=== PATIENT | male | born 1975 | race Hispanic/Latino ===

== ENCOUNTER 2016-12-12 09:57 | Emergency (ER) | payer MEDICARE ==
[2016-12-12 09:57] VITALS: BMI 20.9
[2016-12-12 10:10] VITALS: O2SAT 99
[2016-12-12] MEDS ORDERED: Sodium Chloride 0.9% 1,000 ML IV STA (10:41)
--- NOTE | 2016-12-12 10:45 | ED PDOC ---
Arrival/HPI - General Chief Complaint: Dizziness/Lightheaded Time Seen by Provider: 12/12/16 10:39 Historian: Patient - History of Present Illness Narrative History of Present Illness (Text): 12/12/16 10:30 This 41 yo male presents to this ED c/o left lower molar gum infection x 1 day. Patient also noted a chronic nausea x 8 months. Patient denies PERSAUD, seizures , abdominal pain, sob, cp, rash, fever, or abnormal gait. Time/Duration: Other (1 day) Context: Home Past Medical History - Provider Review Nursing Documentation Reviewed: Yes - Infectious Disease Hx of Infectious Diseases: None - Tetanus Immunization Tetanus Immunization: Unknown - Neurological Hx Migraine: Yes Hx Seizures: Yes - Psychiatric Hx Depression: Yes Hx Emotional Abuse: No Hx Physical Abuse: No Hx Substance Use: No - Surgical History Hx Orthopedic Surgery: Yes (back surgery) - Anesthesia Hx Anesthesia: Yes Hx Anesthesia Reactions: No Hx Malignant Hyperthermia: No - Suicidal Assessment Feels Threatened In Home Enviroment: No Family/Social History - Physician Review Nursing Documentation Reviewed: Yes Family/Social History: No Known Family HX Smoking Status: Heavy Smoker > 10 Cigarettes Daily Hx Alcohol Use: No Hx Substance Use: No Hx Substance Use Treatment: No Allergies/Home Meds Allergies/Adverse Reactions: Allergies No Known Allergies Allergy (Verified 12/12/16 10:09) Home Medications: Home Meds Medication Instructions Recorded Confirmed Methadone 10 mg PO DAILY 04/04/14 12/12/16 Review of Systems - Review of Systems Constitutional: Normal. absent: Fatigue, Weight Change, Fevers Eyes: Normal ENT: Normal. absent: Sore Throat, Rhinorrhea Respiratory: Normal. absent: SOB, Cough Cardiovascular: Normal Gastrointestinal: Nausea. absent: Abdominal Pain, Constipation, Diarrhea, Vomiting Genitourinary Male: Normal. absent: Dysuria, Frequency, Hematuria Musculoskeletal: Normal. absent: Back Pain Skin: Normal. absent: Rash, Cellulitis Neurological: Normal. absent: Headache, Dizziness, Focal Weakness, Gait Changes , Speech Changes Endocrine: Normal Hemo/Lymphatic: Normal Psychiatric: Normal Physical Exam Vital Signs Temp Pulse Resp BP Pulse Ox 12/12/16 10:03 99.8 F H 65 20 155/99 H 99 Temperature: Afebrile Blood Pressure: Hypertensive Pulse: Regular Respiratory Rate: Normal Appearance: Positive for: Well-Appearing, Non-Toxic, Comfortable Pain Distress: None Mental Status: Positive for: Alert and Oriented X 3 - Systems Exam Head: Present: Atraumatic, Normocephalic Pupils: Present: PERRL Extroacular Muscles: Present: EOMI Conjunctiva: Present: Normal Mouth: Present: Moist Mucous Membranes, Normal Lips, Normal Tounge. No: Drooling, Normal Teeth ((+) mild gum swelling tooth 18, and 19. Teeth are missing) Pharnyx: Present: Normal. No: ERYTHEMA, EXUDATE, TONSILS ENLARGED Neck: Present: Normal Range of Motion, Trachea Midline. No: Meningeal Signs Respiratory/Chest: Present: Clear to Auscultation, Good Air Exchange. No: Respiratory Distress, Accessory Muscle Use, Wheezes, Decreased Breath Sounds, Rales, Retracting, Rhonchi, Tachypneic Cardiovascular: Present: Regular Rate and Rhythm, Normal S1, S2. No: Murmurs Abdomen: Present: Normal Bowel Sounds. No: Tenderness, Distention, Peritoneal Signs Back: Present: Normal Inspection Upper Extremity: Present: Normal Inspection, Normal ROM, Neurovascularly Intact , Capillary Refill < 2s. No: Cyanosis, Edema Lower Extremity: Present: Normal Inspection, NORMAL PULSES, Normal ROM, Capillary Refill < 2 s. No: Edema Neurological: Present: GCS=15, CN II-XII Intact, Speech Normal, Motor Func Grossly Intact, Normal Sensory Function, Normal Cerebellar Funct, Gait Normal Skin: Present: Warm, Dry, Normal Color. No: Rashes Psychiatric: Present: Alert, Oriented x 3, Normal Insight, Normal Concentration Medical Decision Making ED Course and Treatment: 12/12/16 12:01 Re-evaluation. Patient feels better. Discussed results and plan with patient who expresses understanding. Counseling was provided regarding the diagnosis and prognosis. All questions answered and there is agreement with the plan to discharge home with instructions. Patient stable for discharge. Return if symptoms persist or worsen Patient admits constipation. Patient requesting Neurology and GI doctor referral Re-evaluation Time: 12:01 Reassessment Condition: Re-examined, Improved - Lab Interpretations Lab Results: 12/12/16 11:03 12/12/16 11:03 Lab Results 12/12/16 11:03: Sodium 141, Potassium 3.8, Chloride 101, Carbon Dioxide 30, Anion Gap 14, BUN 6 L, Creatinine 0.7, Est GFR ( Amer) > 60, Est GFR (Non -Af Amer) > 60, Random Glucose 96, Calcium 8.9, Total Bilirubin 1.1, AST 31, ALT 32, Alkaline Phosphatase 82, Total Protein 7.4, Albumin 4.5, Globulin 3.0, Albumin/Globulin Ratio 1.5, Lipase 17 L 12/12/16 11:03: WBC 10.5, RBC 5.21, Hgb 14.1, Hct 42.5, MCV 81.6, MCH 27.1, MCHC 33.2, RDW 14.8 H, Plt Count 112 L, MPV 13.0 H, Gran % 75.2 H, Lymph % (Auto ) 13.4 L, [place] % (Auto) 10.9 H, Eos % (Auto) 0.3 L, Baso % (Auto) 0.2, Gran # 7.90 H, Lymph # 1.4, [place] # 1.2 H, Eos # 0.0, Baso # 0.02 I have reviewed the lab results: Yes Interpretation: No clinic. lab abnormalty - Medication Orders Current Medication Orders: Discontinued Medications Clindamycin Phosphate 600 mg/ (Sodium Chloride) 54 mls @ 108 mls/hr IVPB STAT STA PRN Reason: Protocol Stop: 12/12/16 11:10 Last Admin: 12/12/16 11:11 Dose: 108 mls/hr Sodium Chloride (Sodium Chloride 0.9%) 1,000 mls @ 999 mls/hr IV .Q1H1M STA Stop: 12/12/16 11:41 Last Admin: 12/12/16 10:58 Dose: 999 mls/hr Ketorolac Tromethamine (Toradol) 15 mg IVP STAT STA Stop: 12/12/16 10:43 Last Admin: 12/12/16 10:58 Dose: 15 mg Metoclopramide HCl (Reglan) 10 mg IVP STAT STA Stop: 12/12/16 10:42 Last Admin: 12/12/16 10:58 Dose: 10 mg Disposition/Present on Arrival - Present on Arrival Any Indicators Present on Arrival: No History of DVT/PE: No History of Uncontrolled Diabetes: No Urinary Catheter: No History of Decub. Ulcer: No History Surgical Site Infection Following: None - Disposition Have Diagnosis and Disposition been Completed?: Yes Diagnosis: Pain due to dental caries, Constipation Disposition: HOME/ ROUTINE Disposition Time: 12:02 Patient Plan: Discharge Patient Problems: Current Active Problems Problem Status Onset Constipation Acute Pain due to dental caries Acute Condition: GOOD Discharge Instructions (ExitCare): Constipation (ED), Toothache (ED) Additional Instructions: Call private doctor for follow up visit in 1-2 days. Take medication as instructed. Return to emergency if symptoms worsen. Call Neurologist and control analyst for revaluation. Prescriptions: Clindamycin [Cleocin] 300 mg PO TID #30 cap Lactulose 20 gm PO BID PRN #1 bottle PRN Reason: Constipation Polyethylene Glycol 3350 [Miralax] 17 gr PO DAILY #1 packet Referrals: PCP,LYNDSEY [Primary Care Provider] - Follow up with primary Terrence Arias MD [Staff Provider] - Follow up with primary Venkatesh Edwards DO [Staff Provider] - Follow up with primary
[2016-12-12 11:05] LABS: ADD MANUAL DIFF? NO
[2016-12-12 11:12] LABS: BASO # 0.02 K/mm3 (0.0-2.0); BASO % 0.2 % (0.0-3.0); EOS % 0.3 % (1.5-5.0); GRAN % 75.2 % (50.0-68.0); HEMATOCRIT 42.5 % (42.0-52.0); LYMPH # 1.4 (1.2-3.4); LYMPH % 13.4 % (22.0-35.0); MEAN CELL VOLUME 81.6 fL (80.0-105.0); MEAN CORPUSCULAR HEMOGLOBIN 27.1 pg (25.0-35.0); MEAN CORPUSCULAR HGB CONC 33.2 g/dl (31.0-37.0); MONO # 1.2 (0.1-0.6); MONO % 10.9 % (1.0-6.0); RED CELL DISTRIBUTION WIDTH 14.8 % (11.5-14.5); WHITE BLOOD COUNT 10.5 10^3/ul (4.5-11.0)
[2016-12-12 11:23] LABS: ALB/GLOB RATIO 1.5 (1.1-1.8); ALKALINE PHOSPHATASE 82 U/L (38-133); ALT/SGPT 32 U/L (7-56); AST/SGOT 31 U/L (15-59); BILIRUBIN,TOTAL 1.1 mg/dL (0.2-1.3); BLOOD UREA NITROGEN 6 mg/dL (7-21); CALCIUM 8.9 mg/dL (8.4-10.5); CARBON DIOXIDE 30 mmol/L (21-33); CHLORIDE 101 mmol/L (98-107); GFR AFRICAN-AMERICAN > 60; GLUCOSE,RANDOM 96 mg/dL (70-110); LIPASE 17 U/L (23-300); POTASSIUM 3.8 mmol/L (3.6-5.0); SODIUM 141 mmol/L (132-148); TOTAL PROTEIN 7.4 g/dL (5.8-8.3)
[2016-12-12 12:12] LABS: PLATELET COUNT 112 10^3/uL (120.0-450.0)
[2016-12-12 12:24] VITALS: BP 138/76; PULSE 84; RESP 18; TEMP 99
== END 2016-12-12 12:26 | disposition home or self-care (01) ==
LOC: ED 09:57
DX: K59.00 Constipation, unspecified (principal); K02.9 Dental caries, unspecified; K08.89 Other specified disorders of teeth and supporting structures
CPT/HCPCS: 80053; 83690; 85025; 96365; 96375; 99285; J1885; J2765; J7040

== ENCOUNTER 2017-04-06 05:49 | Emergency (ER) | payer MEDICARE ==
[2017-04-06 05:49] VITALS: BMI 20.9
[2017-04-06 06:09] VITALS: TEMP 99
--- NOTE | 2017-04-06 07:27 | ED PDOC ---
Arrival/HPI - General Chief Complaint: Medical Clearance Time Seen by Provider: 04/06/17 06:59 Historian: Patient - History of Present Illness Narrative History of Present Illness (Text): 04/06/17 07:00 A 41 year old male smoker, who denies any significant past medical history, presents to the emergency department for chronic back pain, neck pain, and overall total body pain, which he has been dealing with for the past 15 years. The patient reports he stopped seeing pain management over a year ago. He admits to stop taking morphine and methadone about 2 months for the pain. The patient denies any nausea, vomiting, diarrhea, headaches, shortness of breath, or any other complaints at this time. Time/Duration: Other (15 years ) Symptom Onset: Other Symptom Course: Unchanged Activities at Onset: Light Context: Home Associated Symptoms (Text): 04/06/17 08:11 Chronic entire spine pain for many years. Patient had been in pain management for many years. He weaned himself off of his narcotic pain medication several months ago. He states that he can no longer take the pain. He just wants to know what it is. Past Medical History - Provider Review Nursing Documentation Reviewed: Yes - Infectious Disease Hx of Infectious Diseases: None - Tetanus Immunization Tetanus Immunization: Unknown - Neurological Hx Migraine: Yes Hx Seizures: Yes - Psychiatric Hx Anxiety: Yes Hx Depression: Yes Hx Emotional Abuse: No Hx Physical Abuse: No Hx Substance Use: Yes - Surgical History Hx Orthopedic Surgery: Yes (back surgery) - Anesthesia Hx Anesthesia: Yes Hx Anesthesia Reactions: No Hx Malignant Hyperthermia: No - Suicidal Assessment Feels Threatened In Home Enviroment: No Family/Social History - Physician Review Nursing Documentation Reviewed: Yes Family/Social History: No Known Family HX Smoking Status: Heavy Smoker > 10 Cigarettes Daily Hx Alcohol Use: Yes Frequency of alcohol use: Socially Hx Substance Use: Yes Substance used: marijuana today Hx Substance Use Treatment: No Allergies/Home Meds Allergies/Adverse Reactions: Allergies No Known Allergies Allergy (Verified 04/06/17 06:46) Review of Systems - Physician Review All systems were reviewed & negative as marked: Yes - Review of Systems Respiratory: absent: SOB Cardiovascular: absent: Chest Pain Gastrointestinal: absent: Diarrhea, Nausea, Vomiting Neurological: absent: Headache, Focal Weakness, Gait Changes, Disequilibrium, Seizure Physical Exam Vital Signs Reviewed: Yes Vital Signs Temp Pulse Resp BP Pulse Ox 04/06/17 07:43 81 18 128/76 97 04/06/17 06:03 99.0 F 122 H 22 150/80 96 04/06/17 05:49 99 F 122 H 18 150/80 96 Temperature: Afebrile Blood Pressure: Normal Pulse: Regular Respiratory Rate: Normal Appearance: Positive for: Well-Appearing, Non-Toxic, Uncomfortable Pain Distress: Mild Mental Status: Positive for: Alert and Oriented X 3 - Systems Exam Head: Present: Atraumatic, Normocephalic Pupils: Present: PERRL Extroacular Muscles: Present: EOMI Conjunctiva: Present: Normal Mouth: Present: Moist Mucous Membranes Neck: Present: Normal Range of Motion Respiratory/Chest: Present: Clear to Auscultation, Good Air Exchange. No: Respiratory Distress, Accessory Muscle Use Cardiovascular: Present: Regular Rate and Rhythm, Normal S1, S2. No: Murmurs Abdomen: Present: Normal Bowel Sounds. No: Tenderness, Distention, Peritoneal Signs Back: Present: Midline Tenderness (throughout entire spine), Paraspinal Tenderness, Other (large lumbar sacral scar). No: Pain with Leg Raise Upper Extremity: Present: Normal Inspection. No: Cyanosis, Edema Lower Extremity: Present: Normal Inspection. No: Edema Neurological: Present: GCS=15, CN II-XII Intact, Speech Normal, Motor Func Grossly Intact, Normal Sensory Function, Normal Cerebellar Funct, Norm Deep Tendon Reflexes, Gait Normal, Memory Normal, Normal 2Pt Descrimination Skin: Present: Warm, Dry, Normal Color. No: Rashes Psychiatric: Present: Alert, Oriented x 3, Normal Insight, Normal Concentration , Anxious (Appears to be very anxious and nervous) Medical Decision Making ED Course and Treatment: 04/06/17 07:31 Impression: A 41 year old male with overall chronic body pain. Treatment: -- EKG -- Flexeril, toradol Progress Notes: 04/06/17 08:13 No improvement with Toradol and Flexeril. Morphine has been ordered. 04/06/17 09:29 Pain improved after morphine. Discharge home accompanied by girlfriend. Follow- up with PMD and pain management. - Medication Orders Current Medication Orders: Cyclobenzaprine HCl (Flexeril) 10 mg PO ONCE ANAHI Last Admin: 04/06/17 07:25 Dose: 10 mg Discontinued Medications Ketorolac Tromethamine (Toradol) 60 mg IM ONCE ONE Stop: 04/06/17 07:13 Last Admin: 04/06/17 07:25 Dose: 60 mg MAR Pain Assessment Document 04/06/17 07:25 SRE (Rec: 04/06/17 07:26 SRE [id number]) Pain Reassessment Is this a pain reassessment? Yes Sleep Is patient sleeping during reassessment? No Presence of Pain Presence of Pain Yes Pain Scale Used Pain Scale Used Numeric Location Pain Location Body Site Generalized Description Description Constant IM Administration Charges Document 04/06/17 07:25 SRE (Rec: 04/06/17 07:26 SRE [id number]) Charges for Administration # of IM Administrations 1 Morphine Sulfate (Morphine) 4 mg IM STAT STA Stop: 04/06/17 08:11 Last Admin: 04/06/17 08:21 Dose: 4 mg MAR Pain Assessment Document 04/06/17 08:21 SRE (Rec: 04/06/17 08:22 SRE [id number]) Pain Reassessment Is this a pain reassessment? Yes Sleep Is patient sleeping during reassessment? No Presence of Pain Presence of Pain Yes Pain Scale Used Pain Scale Used Numeric Location Pain Location Body Site Generalized IM Administration Charges Document 04/06/17 08:21 SRE (Rec: 04/06/17 08:22 SRE [id number]) Charges for Administration # of IM Administrations 1 - Scribe Statement The provider has reviewed the documentation as recorded by the Scribmayur Pérez Provider Scribe Attestation: All medical record entries made by the Scribe were at my direction and personally dictated by me. I have reviewed the chart and agree that the record accurately reflects my personal performance of the history, physical exam, medical decision making, and the department course for this patient. I have also personally directed, reviewed, and agree with the discharge instructions and disposition. Disposition/Present on Arrival - Present on Arrival Any Indicators Present on Arrival: No History of DVT/PE: No History of Uncontrolled Diabetes: No Urinary Catheter: No History of Decub. Ulcer: No History Surgical Site Infection Following: None - Disposition Have Diagnosis and Disposition been Completed?: Yes Diagnosis: Chronic back pain Disposition: HOME/ ROUTINE Disposition Time: 09:29 Patient Plan: Discharge Condition: IMPROVED Discharge Instructions (ExitCare): Chronic Back Pain (ED) Prescriptions: oxyCODONE/Acetaminophen [Percocet 5/325 mg Tab] 1 ea PO Q6 #10 tab Referrals: PCP,NO [Primary Care Provider] - Follow up with primary Surendra Hector DO [Staff Provider] - Follow up with primary Forms: [employer] ([place])
[2017-04-06 07:44] VITALS: BP 128/76; RESP 18
[2017-04-06] MEDS ORDERED: Morphine 4 mg/ml ISec IM STA (08:10)
[2017-04-06 09:32] VITALS: PULSE 92; O2SAT 99
== END 2017-04-06 09:42 | disposition home or self-care (01) ==
LOC: ED 05:49
DX: M54.9 Dorsalgia, unspecified (principal); G89.29 Other chronic pain
CPT/HCPCS: 96372; 99283; J1885; J2270

== ENCOUNTER 2017-07-10 16:49 | Emergency (ER) | payer MEDICARE ==
[2017-07-10 16:49] VITALS: BMI 20.9
[2017-07-10] MEDS ORDERED: levETIRAcetam 1,000 MG in Sodium Chloride 0.9% 100 ML IV ONE (17:08)
--- NOTE | 2017-07-10 17:13 | ED PDOC ---
Arrival/HPI - General Chief Complaint: Seizure Time Seen by Provider: 07/10/17 16:58 Historian: Patient, Family - History of Present Illness Narrative History of Present Illness (Text): 07/10/17 17:08 A 41 year old male, whose past medical history includes seizure disorder and frequent falls, presents to the emergency department for trauma above the right eye, which occurred prior to arrival when the patient began to feel dizzy and he "may have had a seizure" he struck his right forehead. The patient states he still feels dizzy, but denies any nausea, vomiting, vision changes. The patient denies any alcohol intake or drug use. Time/Duration: Prior to Arrival Symptom Onset: Sudden Symptom Course: Unchanged Severity Level: Mild Activities at Onset: Light Context: Home Past Medical History - Provider Review Nursing Documentation Reviewed: Yes - Infectious Disease Hx of Infectious Diseases: None - Tetanus Immunization Tetanus Immunization: Unknown - Cardiac Hx Cardiac Disorders: No - Pulmonary Hx Respiratory Disorders: No - Neurological Hx Neurological Disorder: Yes Hx Migraine: Yes Hx Seizures: Yes - HEENT Hx HEENT Disorder: No - Renal Hx Renal Disorder: No - Endocrine/Metabolic Hx Endocrine Disorders: No - Hematological/Oncological Hx Blood Disorders: No - Integumentary Hx Dermatological Disorder: No - Musculoskeletal/Rheumatological Hx Musculoskeletal Disorders: No - Gastrointestinal Hx Gastrointestinal Disorders: No - Genitourinary/Gynecological Hx Genitourinary Disorders: No - Psychiatric Hx Anxiety: Yes Hx Depression: Yes Hx Emotional Abuse: No Hx Physical Abuse: No Hx Substance Use: Yes - Surgical History Hx Orthopedic Surgery: Yes (back surgery) - Anesthesia Hx Anesthesia: Yes Hx Anesthesia Reactions: No Hx Malignant Hyperthermia: No - Suicidal Assessment Feels Threatened In Home Enviroment: No Family/Social History - Physician Review Nursing Documentation Reviewed: Yes Family/Social History: No Known Family HX Smoking Status: Heavy Smoker > 10 Cigarettes Daily Hx Alcohol Use: Yes Hx Substance Use: Yes Substance used: marijuana today Hx Substance Use Treatment: No Allergies/Home Meds Allergies/Adverse Reactions: Allergies No Known Allergies Allergy (Verified 07/10/17 17:02) Home Medications: Home Meds Medication Instructions Recorded Confirmed Lamotrigine [Lamictal] 0 mg PO BID 07/10/17 07/10/17 Methadone [Methadone] 0 mg PO DAILY 07/10/17 07/10/17 Review of Systems - Physician Review All systems were reviewed & negative as marked: Yes - Review of Systems Eyes: absent: Vision Changes Gastrointestinal: absent: Nausea, Vomiting Neurological: Dizziness Physical Exam Vital Signs Reviewed: Yes Vital Signs Temp Pulse Resp BP Pulse Ox 07/11/17 00:00 98.6 F 76 16 138/80 99 07/10/17 22:00 64 16 148/70 99 07/10/17 20:00 73 14 113/63 99 07/10/17 18:02 73 18 113/70 98 07/10/17 17:05 98.8 F 122 H 30 H 181/114 H 99 Temperature: Afebrile Blood Pressure: Hypertensive Pulse: Tachycardic Respiratory Rate: Tachypneic Appearance: Positive for: Well-Appearing, Non-Toxic, Comfortable Pain Distress: None Mental Status: Positive for: Alert and Oriented X 3 - Systems Exam Head: Present: Contusion (contusion with abrasion over right eye ) Pupils: Present: PERRL Extroacular Muscles: Present: EOMI Conjunctiva: Present: Normal Mouth: Present: Moist Mucous Membranes Neck: Present: Normal Range of Motion. No: MIDLINE TENDERNESS, Paraspinal Tenderness Respiratory/Chest: Present: Clear to Auscultation, Good Air Exchange. No: Respiratory Distress, Accessory Muscle Use, Tender to Palpation Cardiovascular: Present: Regular Rate and Rhythm, Normal S1, S2. No: Murmurs Abdomen: Present: Normal Bowel Sounds. No: Tenderness, Distention, Peritoneal Signs Back: Present: Normal Inspection Upper Extremity: Present: Normal Inspection. No: Cyanosis, Edema Lower Extremity: Present: Normal Inspection. No: Edema Neurological: Present: GCS=15, CN II-XII Intact, Other (slightly slurred speech ). No: Speech Normal Skin: Present: Warm, Dry, Normal Color. No: Rashes Psychiatric: Present: Alert, Oriented x 3, Normal Insight, Normal Concentration Medical Decision Making ED Course and Treatment: 07/10/17 17:18 Impression: A 41 year old male with trauma to right forehead and possible seizure. Differential Diagnosis included but are not limited to: Plan: -- Cervical Spine CT -- Head CT -- Labs -- Levetiracetam -- Reassess and disposition Progress Notes: - Critical Care Narrative Critical Care (Text): 07/10/17 21:56 CT head and neck negative for acute pathology. Patient is lethargic but arousable. Not yet ambulatory. Labs stable. Continue ED observation. Discharge when more alert and ambulatory. - Lab Interpretations Lab Results: 07/10/17 17:00 07/10/17 17:00 Lab Results 07/10/17 17:00: Alcohol, Quantitative < 10 07/10/17 17:00: Sodium 142, Potassium 4.2, Chloride 105, Carbon Dioxide 26, Anion Gap 16, BUN 11, Creatinine 0.8, Est GFR ( Amer) > 60, Est GFR (Non- Af Amer) > 60, Random Glucose 94, Calcium 9.2, Magnesium 2.1, Total Bilirubin 0.5, AST 29, ALT 31, Alkaline Phosphatase 78, Total Protein 7.6, Albumin 4.5, Globulin 3.1, Albumin/Globulin Ratio 1.5 07/10/17 17:00: WBC 8.3 D, RBC 5.09, Hgb 14.2, Hct 43.6, MCV 85.7, MCH 27.9, MCHC 32.6, RDW 14.4, Plt Count 168, MPV 11.1 H, Gran % 61.8, Lymph % (Auto) 28.3 , [place] % (Auto) 9.1 H, Eos % (Auto) 0.4 L, Baso % (Auto) 0.4, Gran # 5.13, Lymph # 2.3, [place] # 0.8 H, Eos # 0.0, Baso # 0.03 07/10/17 16:58: POC Glucose (mg/dL) 82 - RAD Interpretation Radiology Orders: 07/10/17 17:06 HEAD W/O CONTRAST [CT] Stat 07/10/17 17:07 CERVICAL SPINE W/O CONTRAST [CT] Stat - Medication Orders Current Medication Orders: Discontinued Medications Acetaminophen (Tylenol 325mg Tab) 650 mg PO STAT STA Stop: 07/11/17 02:45 Last Admin: 07/11/17 03:39 Dose: 650 mg MAR Pain/Vitals Document 07/11/17 03:39 AD (Rec: 07/11/17 03:39 AD [id number]) Pain Reassessment Is This A Pain ReAssessment? No Levetiracetam 1,000 mg/ Sodium (Chloride) 110 mls @ 440 mls/hr IV ONCE ONE Stop: 12/30/17 17:22 Last Admin: 07/10/17 17:57 Dose: 440 mls/hr eMAR Start Stop Document 07/10/17 17:57 EWO (Rec: 07/10/17 17:57 [place] [facility] [id number] Intravenous Solution Start Date 07/10/17 Start Time 17:57 End Date 07/10/17 End time 18:12 Total Infusion Time 15 Lorazepam (Ativan) 1 mg IVP ONCE ONE PRN Reason: Protocol Stop: 07/10/17 20:29 Last Admin: 07/10/17 20:36 Dose: 1 mg IVP Administration Document 07/10/17 20:36 AB (Rec: 07/10/17 20:36 AB [facility] [id number] Charges for Administration # of IVP Administrations 1 - Scribe Statement The provider has reviewed the documentation as recorded by the Scribe Fabienne Pérez Provider Scribe Attestation: All medical record entries made by the Scribe were at my direction and personally dictated by me. I have reviewed the chart and agree that the record accurately reflects my personal performance of the history, physical exam, medical decision making, and the department course for this patient. I have also personally directed, reviewed, and agree with the discharge instructions and disposition. Disposition/Present on Arrival - Present on Arrival History of DVT/PE: No History of Uncontrolled Diabetes: No Urinary Catheter: No History of Decub. Ulcer: No History Surgical Site Infection Following: None - Disposition Diagnosis: Seizure Disposition: AGAINST MEDICAL ADVICE Patient Problems: Current Active Problems Problem Status Onset Seizure Acute Condition: STABLE Forms: [employer] (Sinhala)
[2017-07-10 17:37] LABS: ALB/GLOB RATIO 1.5 (1.1-1.8); ALBUMIN 4.5 g/dL (3.0-4.8); ALT/SGPT 31 U/L (7-56); AST/SGOT 29 U/L (17-59); BLOOD UREA NITROGEN 11 mg/dL (7-21); CALCIUM 9.2 mg/dL (8.4-10.5); GFR AFRICAN-AMERICAN > 60; GFR NON-AFRICAN AMERICAN > 60; MAGNESIUM 2.1 mg/dL (1.7-2.2)
[2017-07-10 17:40] LABS: BASO # 0.03 K/mm3 (0.0-2.0); BASO % 0.4 % (0.0-3.0); EOS % 0.4 % (1.5-5.0); GRAN # 5.13 (1.4-6.5); GRAN % 61.8 % (50.0-68.0); HEMOGLOBIN 14.2 g/dL (14.0-18.0); LYMPH # 2.3 (1.2-3.4); LYMPH % 28.3 % (22.0-35.0); MEAN CELL VOLUME 85.7 fl (80.0-105.0); MEAN CORPUSCULAR HEMOGLOBIN 27.9 pg (25.0-35.0); MEAN CORPUSCULAR HGB CONC 32.6 g/dl (31.0-37.0); MEAN PLATELET VOLUME 11.1 fl (7.0-11.0); MONO # 0.8 (0.1-0.6); MONO % 9.1 % (1.0-6.0); RBC 5.09 10^6/uL (3.5-6.1); RED CELL DISTRIBUTION WIDTH 14.4 % (11.5-14.5); WHITE BLOOD COUNT 8.3 10^3/ul (4.5-11.0)
[2017-07-10 20:40] VITALS: O2SAT 99
--- NOTE | 2017-07-10 21:44 | CT ---
EXAM: CT Head and facial bones Without Intravenous Contrast CLINICAL HISTORY: 41 years old, male; Injury or trauma; Fall; Initial encounter; Abrasion; Head, generalized; Patient HX: Seizure, head injury TECHNIQUE: Axial computed tomography images of the head/brain and facial bones without intravenous contrast. All CT scans at this facility use one or more dose reduction techniques, viz.: automated exposure control; ma/kV adjustment per patient size (including targeted exams where dose is matched to indication; i.e. head); or iterative reconstruction technique. Coronal and sagittal reformatted images were created and reviewed. COMPARISON: No relevant prior studies available. FINDINGS: Brain: No hemorrhage. No significant white matter disease. No edema. Ventricles: No hydrocephalus. Bones: Skull is intact. Sinuses: No acute sinusitis. Minimal left maxillary paranasal sinus disease. Mastoid air cells: No mastoid effusion. Evidence of dental disease including periapical lucency. Followup evaluation recommended. IMPRESSION: No CT evidence of acute intracranial abnormality. No acute fracture visualized. Details/findings as above.
--- NOTE | 2017-07-10 21:47 | CT ---
EXAM: CT Cervical Spine Without Intravenous Contrast CLINICAL HISTORY: 41 years old, male; Injury or trauma; Fall; Initial encounter; Abrasion TECHNIQUE: Axial computed tomography images of the cervical spine without intravenous contrast. All CT scans at this facility use one or more dose reduction techniques, viz.: automated exposure control; ma/kV adjustment per patient size (including targeted exams where dose is matched to indication; i.e. head); or iterative reconstruction technique. Coronal and sagittal reformatted images were created and reviewed. COMPARISON: No relevant prior studies available. FINDINGS: Vertebrae/discs: No acute fracture. No acute subluxation. No suspicious osseous lesion. No severe spinal canal stenosis. Soft tissues: No acute findings. IMPRESSION: Negative for acute fracture.
[2017-07-10 22:52] VITALS: RESP 16
--- NOTE | 2017-07-10 23:22 | ED PDOC ---
Physical Exam Vital Signs Temp Pulse Resp BP Pulse Ox 07/11/17 00:00 98.6 F 76 16 138/80 99 07/10/17 22:00 64 16 148/70 99 07/10/17 20:00 73 14 113/63 99 07/10/17 18:02 73 18 113/70 98 07/10/17 17:05 98.8 F 122 H 30 H 181/114 H 99 Medical Decision Making ED Course and Treatment: 07/10/17 23:00 Case endorsed to me by Dr. Brodeirck. Pt, whose past medical history includes seizures and frequent falls, presented s/p fall and possible seizure. Given IV Keppra and IV Ativan as pt was apparently agitated. Pt has remained lethargic but arousable, CT scans done previously of neck and head were all negative. 07/10/17 23:52 Pt remains lethargic, drowsy in ER, will admit for further observation and evaluation. Case discussed with Dr. Nieves, who is aware and agrees with plan. Accepts pt in her service,Dr. Arias on neuro consult. 07/11/17 00:19 Pt now awake, alert, stating he feels fine and insists on wanting to leave. Pt states he will sign out against medical advice. 07/11/17 00:44 EKG reviewed, NSR at [address]-segment elevations or depressions, no T-wave inversions, normal intervals. 07/11/17 03:51 Pt observed for extended period of time in Emergency department, pt still insists he feels fine and wants to leave against medical advice. Pt fully ambulatory with steady gait. Pt states he feels fine, and understands the risks of leaving against medical advice including the possibility of seizures/. Pt will f/u outpt. - Lab Interpretations Lab Results: 07/10/17 17:00 07/10/17 17:00 Lab Results 07/10/17 17:00: Alcohol, Quantitative < 10 07/10/17 17:00: Sodium 142, Potassium 4.2, Chloride 105, Carbon Dioxide 26, Anion Gap 16, BUN 11, Creatinine 0.8, Est GFR ( Amer) > 60, Est GFR (Non- Af Amer) > 60, Random Glucose 94, Calcium 9.2, Magnesium 2.1, Total Bilirubin 0.5, AST 29, ALT 31, Alkaline Phosphatase 78, Total Protein 7.6, Albumin 4.5, Globulin 3.1, Albumin/Globulin Ratio 1.5 07/10/17 17:00: WBC 8.3 D, RBC 5.09, Hgb 14.2, Hct 43.6, MCV 85.7, MCH 27.9, MCHC 32.6, RDW 14.4, Plt Count 168, MPV 11.1 H, Gran % 61.8, Lymph % (Auto) 28.3 , Yancey % (Auto) 9.1 H, Eos % (Auto) 0.4 L, Baso % (Auto) 0.4, Gran # 5.13, Lymph # 2.3, Yancey # 0.8 H, Eos # 0.0, Baso # 0.03 07/10/17 16:58: POC Glucose (mg/dL) 82 - RAD Interpretation Radiology Orders: 07/10/17 17:06 HEAD W/O CONTRAST [CT] Stat 07/10/17 17:07 CERVICAL SPINE W/O CONTRAST [CT] Stat - EKG Interpretation Interpreted by ED Physician: Yes Type: 12 lead EKG - Medication Orders Current Medication Orders: Discontinued Medications Acetaminophen (Tylenol 325mg Tab) 650 mg PO STAT STA Stop: 07/11/17 02:45 Last Admin: 07/11/17 03:39 Dose: 650 mg MAR Pain/Vitals Document 07/11/17 03:39 AD (Rec: 07/11/17 03:39 AD [id number]) Pain Reassessment Is This A Pain ReAssessment? No Levetiracetam 1,000 mg/ Sodium (Chloride) 110 mls @ 440 mls/hr IV ONCE ONE Stop: 07/10/17 17:22 Last Admin: 07/10/17 17:57 Dose: 440 mls/hr eMAR Start Stop Document 07/10/17 17:57 EWO (Rec: 07/10/17 17:57 EWO [id number]) Intravenous Solution Start Date 07/10/17 Start Time 17:57 End Date 07/10/17 End time 18:12 Total Infusion Time 15 Lorazepam (Ativan) 1 mg IVP ONCE ONE PRN Reason: Protocol Stop: 07/10/17 20:29 Last Admin: 07/10/17 20:36 Dose: 1 mg IVP Administration Document 07/10/17 20:36 AB (Rec: 07/10/17 20:36 AB [facility] [place]-[id number]) Charges for Administration # of IVP Administrations 1 Disposition/Present on Arrival - Present on Arrival Any Indicators Present on Arrival: No History of DVT/PE: No History of Uncontrolled Diabetes: No Urinary Catheter: No History of Decub. Ulcer: No History Surgical Site Infection Following: None - Disposition Have Diagnosis and Disposition been Completed?: Yes Diagnosis: Seizure Disposition: AGAINST MEDICAL ADVICE Disposition Time: 03:50 Patient Problems: Current Active Problems Problem Status Onset Seizure Acute Condition: STABLE Forms: [employer] ([employer])
[2017-07-11 00:45] VITALS: BP 138/80; PULSE 76; TEMP 98.6
--- NOTE | 2017-07-11 15:37 | CARD ---
APPROVED REPORT EKG Measurement Heart [id number] <Conclusion> Normal sinus rhythm Normal ECG
== END 2017-07-11 03:50 | disposition left against medical advice (07) ==
LOC: ED 16:49
DX: G40.909 Epilepsy, unspecified, not intractable, without status epilepticus (principal)
CPT/HCPCS: 70450; 72125; 80053; 82948; 83735; 85025; 93005; 96374; 99285; G0480; J1953; J2060